=== PATIENT | female | born 1975 | race Caucasian/White ===

== ENCOUNTER → 2016-12-11 | Outpatient (CLI) | payer OTHER ==
[~2016-12-11] MED LIST: LEVAQUIN500 MG PO
== END ==
LOC: RAD 11:10
DX: M54.2 Cervicalgia (principal); M54.5 Low back pain; R05 Cough; M47.816 Spondylosis without myelopathy or radiculopathy, lumbar region; M47.812 Spondylosis without myelopathy or radiculopathy, cervical region; M47.814 Spondylosis without myelopathy or radiculopathy, thoracic region
CPT/HCPCS: 71020; 72050; 72072; 72110

== ENCOUNTER 2017-01-04 21:11 | Emergency (ER) | payer OTHER ==
[2017-01-04 23:42] LABS: HEMOGLOBIN 13.3 gm/dl (12.3-15.3); RED BLOOD COUNT 4.25 M/UL (4.00-5.10); WHITE BLOOD COUNT 4.8 K/UL (4.5-11.0)
[2017-01-04 23:59] LABS: BUN/CREATININE RATIO 5 (0-10)
== END 2017-01-05 04:40 | disposition home or self-care (01) ==
LOC: ER1 21:11
PROVIDERS: Student in an Organized Health Care Education/Training Program
DX: R10.32 Left lower quadrant pain (principal); R11.0 Nausea; I10 Essential (primary) hypertension; F17.210 Nicotine dependence, cigarettes, uncomplicated; Z90.49 Acquired absence of other specified parts of digestive tract
CPT/HCPCS: 36415; 80053; 81001; 82150; 83690; 85025; 96374; 96375; 96376; 99284; J2060; J2270; J2405; J7050; J7120; Q9962